=== PATIENT | male | born 1965 | race Caucasian/White ===

== ENCOUNTER → 2018-12-16 | Outpatient (CLI) | payer OTHER ==
--- NOTE | 2018-12-16 15:34 | KCIC ---
EXAM: Lumbar spine, 5 views; thoracic spine, 3 views. HISTORY: Pain. Fall. COMPARISON: None. FINDINGS: Lumbar spine: 5 views lumbar spine are obtained. There are hypoplastic T12 ribs and 4 nonrib-bearing lumbar segments. There is slight lumbarization of the S1 segment with rudimentary S1-S2 disc. There is no significant listhesis. The vertebral bodies are normal in height and the disc spaces are preserved. There is facet arthropathy at the lumbosacral junction. Thoracic spine: 3 views of the thoracic spine are obtained. There are hypoplastic T12 ribs. The vertebral jasso are normal in height and the disc spaces are preserved. There is degenerative change at the lower cervical levels, not formally assessed on this exam. IMPRESSION: 1. Mild multilevel degenerative change involving the lumbar spine, primarily at the lumbosacral junction. 2. Transitional S1 segment and there hypoplastic T12 ribs, normal variants. Electronically signed by: Josselyn Vazquez MD (12/16/2018 3:31 PM) [email or web address]
== END | disposition home or self-care (01) ==
LOC: KCIC 13:58
PROVIDERS: ATTEND Physician Assistant Medical
DX: M47.817 Spondylosis without myelopathy or radiculopathy, lumbosacral region (principal); M12.88 Other specific arthropathies, not elsewhere classified, other specified site
CPT/HCPCS: 72072; 72110

== ENCOUNTER → 2019-10-06 | Outpatient (CLI) | payer OTHER ==
--- NOTE | 2019-10-07 13:54 | KCIC ---
CERVICAL SPINE 2-3V History: Neck pain. Technique: 3 views cervical spine. Comparison: None. Findings: Normal alignment. Normal vertebral body height. No fracture. Mild degenerative disc changes C5-C6 and C6-C7. Normal alignment C1 on C2. Impression: 1. Multilevel cervical spondylosis most prominent C5-C6 and C6-C7. Electronically signed by: Satish Tracy DO (10/07/2019 1:52 PM) [email or web address]
--- NOTE | 2019-10-07 13:55 | KCIC ---
SHOULDER 2+V LEFT History: Left shoulder pain. Technique: 3 views left shoulder. Comparison: None. Findings: Normal alignment of the glenohumeral and acromioclavicular joints. No fracture. Soft tissues unremarkable. Impression: 1. No acute osseous abnormalities. Electronically signed by: Satish Tracy DO (10/07/2019 1:52 PM) [email or web address]
== END | disposition home or self-care (01) ==
LOC: KCIC 15:21
PROVIDERS: ATTEND Internal Medicine
DX: M47.812 Spondylosis without myelopathy or radiculopathy, cervical region (principal); M75.82 Other shoulder lesions, left shoulder
CPT/HCPCS: 72040; 73030

== ENCOUNTER → 2020-11-09 | Outpatient (CLI) | payer OTHER ==
[~2020-11-09] MED LIST: IOHEXOL 240 MG/ML 50ML VIAL. PO ONE; IOHEXOL 300 MG/ML 100ML VIAL. IV ONE
--- NOTE | 2020-11-09 15:46 | KCIC ---
EXAM: CT Abdomen and Pelvis with IV contrast INDICATION: Reason: Epigastric abdominal pain. Pain 6 months, back pain. / Spl. Instructions: 100mL O mni 300 / History: TECHNIQUE: Multi-detector row CT images were acquired from the lung bases through the abdomen and pel vis with the use of IV contrast. Sagittal and coronal images were acquired from the transaxial data. All CT scans performed at this facility utilize dose optimization techniques as appropriate to the ex am, including the following: Automated exposure control and adjustment of the mA and/or KV according to patient size (this includes techniques or standardized protocols for targeted exams where dose is indication/reason for exam). IV CONTRAST: Administered ORAL CONTRAST: None COMPARISON: None FINDINGS: LOWER CHEST: Unremarkable LIVER: Diffuse hypodensity compatible with fatty infiltration is present. No discrete mass or nodula rity. BILIARY SYSTEM: Gallbladder is surgically absent. Bile ducts are not dilated. PANCREAS: Unremarkable SPLEEN: Unremarkable ADRENALS: Unremarkable KIDNEYS & URETERS: Unremarkable BLADDER: Unremarkable REPRODUCTIVE ORGANS: Unremarkable GASTROINTESTINAL: The stomach, small bowel, and colon are unremarkable. The appendix is normal. MESENTERY/PERITONEUM/RETROPERITONEUM: Unremarkable VASCULAR: Circumaortic left renal vein. LYMPH NODES: No adenopathy OSSEOUS & SOFT TISSUES: Unremarkable IMPRESSION: No acute findings in the abdomen or pelvis to explain epigastric pain. Correlate findings of hepatic steatosis with any evidence of liver dysfunction. If enterogastric reflux is suspected, a HIDA scan could be pursued in further evaluation. Electronically signed by: Janel Marion MD (11/09/2020 3:44 PM) [id number]
== END ==
LOC: KCIC CT 09:03
PROVIDERS: ATTEND Family Medicine
DX: R10.13 Epigastric pain (principal); K76.0 Fatty (change of) liver, not elsewhere classified; Z80.0 Family history of malignant neoplasm of digestive organs; Z90.49 Acquired absence of other specified parts of digestive tract
CPT/HCPCS: 74177; Q9966; Q9967

== ENCOUNTER → 2021-11-08 | Outpatient (CLI) | payer OTHER ==
[~2021-11-08] MED LIST changes: +AMLO-187 PO; +FLUO10CA13 PO; +GADOTERATE 7.5 MMOL/15ML VIAL. IVP ONE; -IOHEXOL 240 MG/ML 50ML VIAL. PO ONE; -IOHEXOL 300 MG/ML 100ML VIAL. IV ONE; +PROP10TA PO
--- NOTE | 2021-11-08 16:20 | KCIC ---
MRI BRAIN WO+W History:Reason: MIGRAINE SIEGEL'S / Spl. Instructions: / History: Migraines for 20 yrs. Coming more freq uently now. 15cc Clariscan Technique: Multiplanar, multi sequential without and with intravenous contrast MR imaging was perform ed of the brain. Comparison: None Findings: No acute infarct. No intracranial hemorrhage. No mass effect. No hydrocephalus. No pathologic enhanc ement. Imaged orbits are unremarkable. Mild scattered paranasal sinus because of thickening. Mastoid air darby ls are clear. Impression: 1. No acute intracranial abnormality. Electronically signed by: Satish Tracy DO (11/08/2021 4:17 PM) [id number]
== END ==
LOC: KCIC MRI 13:17
PROVIDERS: ATTEND Physician Assistant
DX: G43.709 Chronic migraine without aura, not intractable, without status migrainosus (principal); J34.89 Other specified disorders of nose and nasal sinuses
CPT/HCPCS: 70553; 82565; A9575